=== PATIENT | female | born 1940 | race Caucasian/White ===

== ENCOUNTER → 2016-06-11 | Outpatient (CLI) | payer MEDICARE, BC ==
[~2016-06-11] MED LIST: CELEBREX PO; COUMADIN5 MG PO; CYANOCOBALAMIN PO; DELTASONE20 MG PO; FOLIC ACID1 MG PO; KID'S GUMMY BE1 EACH PO; LIPITOR40 MG PO; LOTREL 5-20 MG1 CAP PO; MULTI VITAMIN1 EACH PO; PHENERGAN25 MG PO; PYRIDOXINE PO; TUMS500 MG PO
--- NOTE | ~2016-06-11 | CT55 ---
[facility] A Service of [facility] RADIOLOGY TEXT RESULTS PATIENT: MARTI GARSIA [facility] UN[facility] #: [id number] AGE: [address]: Alejandro Crow MD SEX: F ORDER DR: [id number] [facility] [address] [place], [place] [address] [id number] O MR#: [id number] Acc #: [id number] NAME: MARTI GARSIA : 1940 SEX: F STUDY DATE/TIME: 06/11/2016 13:53 UNIT: [facility] ROOM: STUDY DESCRIPTION: CT Chest W Con Attending Physician: Alejandro Crow M.D. Referring Physician: Alejandro Crow M.D. Ordering Physician: Alejandro Crow M.D. Primary Care Physician: Layton Springer M.D. MEDICAL IMAGING REPORT This report is preliminary unless electronic signature is present EXAM CT Chest INDICATIONS Pulmonary embolism without acute core pulmonale. 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 Weakness. Pulmonary fibrosis. Chronic shortness of air. TECHNIQUE CT of the chest utilizing 7 mL Isovue-370 IV contrast. Coronal and sagittal reconstructions were obtained. This CT exam was performed with one or more of the following radiation dose reduction techniques: automatic exposure control, adjustment of mA and/or kV according to patient size, and iterative reconstruction. COMPARISON CT thorax dated 03/09/2016 FINDINGS Right mediastinal and right hilar lymphadenopathy continues to decrease in size. The size measurements are slightly different than the prior report based on measuring technique, however, a right suprahilar lymph node measures 2 x 1.8 cm compared to 2.4 x 1.8 cm previously. A second right hilar lymph node measures 2 x 1.4 cm compared to 1.9 x 1.4 cm previously. No new or enlarging pulmonary nodules. No new pulmonary opacities. Patient has diffuse chronic interstitial changes in both lungs including interstitial changes and bronchiectasis. No new opacities. Central airways are patent. The main pulmonary artery is dilated measuring 4 cm in diameter indicating [facility] A Service of [facility] RADIOLOGY TEXT RESULTS PATIENT: MARTI GARSIA LOCATION: [facility] : 40 UNIT #: [id number] AGE: [address]: Alejandro Crow MD SEX: F ORDER DR: a component of pulmonary arterial hypertension. No pericardial or pleural effusion. Limited images of the upper abdomen were obtained. The spleen is normal in size. Small Bochdalek hernia on the right. There is nonobstructing calculi in the left. No acute osseous abnormalities. IMPRESSION 1. Partial response to therapy. Right mediastinal/hilar lymph nodes continue to improve. 2. No evidence of disease progression. 3. Chronic interstitial opacities in both lungs have not significantly changed. Dictated by... Bryan Fitch M.D. THIS IS AN ELECTRONICALLY VERIFIED REPORT Bryan Fitch M.D. at 06/14/2016 2:00 PM Elvira/joseph TD: 06/14/2016 13:27 JOB #: [id number] MEDICAL IMAGING REPORT COPY
[2016-06-11 13:45] LABS: POC - CREATININE 0.82 mg/dL (0.44-1.03); POC - GFR >60.0 mL/min (>60)
== END | disposition home or self-care (01) ==
LOC: CCAT 12:22
PROVIDERS: Radiology Radiation Oncology
DX: I26.99 Other pulmonary embolism without acute cor pulmonale (principal); C83.37 Diffuse large B-cell lymphoma, spleen; R53.1 Weakness; C85.29 Mediastinal (thymic) large B-cell lymphoma, extranodal and solid organ sites
CPT/HCPCS: 71260; 82565; Q9967

== ENCOUNTER → 2016-09-09 | Outpatient (CLI) | payer MEDICARE, BC ==
--- NOTE | ~2016-09-09 | CT55 ---
[facility] A Service of [facility] & [facility] RADIOLOGY TEXT RESULTS PATIENT: MARTI GARSIA [facility] UNIT #: [id number] AGE: [address]: Myles Page MD SEX: F ORDER DR: [id number] [facility] [address] [place], [place] [address] [id number] O MR#: [id number] Acc #: [id number] NAME: MARTI GARSIA : 1940 SEX: F STUDY DATE/TIME: 09/09/2016 10:23 UNIT: [facility] ROOM: STUDY DESCRIPTION: CT Chest W Con Attending Physician: Myles Page M.D. Referring Physician: Myles Page M.D. Ordering Physician: Myles Page M.D. Primary Care Physician: Layton Springer M.D. MEDICAL IMAGING REPORT This report is preliminary unless electronic signature is present EXAM CT chest with contrast. DATE 09/09/16 HISTORY Diffuse large B-cell lymphoma, spleen. Weakness. Mediastinal (thymic) large B-cell lymphoma, external and subtle solid organ sites. Patient states lymphoma followup, history of pulmonary fibrosis since 2009. Patient states no current complaints. On home oxygen. History of pulmonary emboli. Last chemotherapy treatment January 2016, last radiation therapy treatment April 2016, per patient. Observation for metastatic disease. Restaging. COMPARISON CT chest with contrast 06/11/16, 03/09/16, 12/02/15. PROCEDURE 5 mm axial images through the chest after intravenous contrast administration. Sagittal and coronal reformed images were obtained. This CT exam was performed with one or more of the following radiation dose reduction techniques: Automatic exposure control, adjustment of mA and/or kV according to patient size, and iterative reconstruction. FINDINGS There is a linear or weblike filling defect within the proximal right lower lobe pulmonary artery (series 4 image 28) which is unchanged from 03/09/16, having an appearance of a chronic pulmonary embolism. It extends into right lower lobe segmental branch, again unchanged. No acute appearing pulmonary embolism is identified. Central pulmonary arteries are enlarged consistent with the appearance of pulmonary arterial [facility] A Service of [facility] & [facility] RADIOLOGY TEXT RESULTS PATIENT: MARTI GARSIA LOCATION: [facility] : 40 UNIT #: [id number] AGE: [address]: Myles Page MD SEX: F ORDER DR: hypertension. 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 No aortic dissection. Mild cardiomegaly persists, there is no pericardial effusion or pleural effusion. Ill-defined soft tissue thickening or adenopathy is again demonstrated within the right hilum and the mediastinum predominantly to the right of midline. Exact measurements are somewhat difficult due to an infiltrative appearance. Index node anterior to the right main pulmonary artery measures approximately 1.4 x 1.3 cm compared to 2.0 x 1.8 cm previously. Another right hilar node measures approximately 9 mm short axis compared to 1.4 cm previously. Pretracheal soft tissue thickness up to 7 mm compared to 9 mm on previous study. No new adenopathy or new mass lesion is identified. No supraclavicular or axillary nodes are seen. There is new alveolar disease within the superior segment right lower lobe and within the posterior right upper lobe. Correlation for superimposed pneumonia upon advanced emphysema and interstitial pulmonary fibrosis should be made. Small right Bochdalek hernia redemonstrated. Cholecystectomy. Gastric band device in place. Spleen size within normal limits. Left renal parapelvic cysts noted. Degenerative endplate changes are present in the thoracic spine. No acute or suspicious osseous lesions are identified. Degenerative changes of both shoulders. IMPRESSION 1. Continued positive response to therapy. Right hilar and mediastinal soft tissue thickening or adenopathy has diminished in size since the 06/11/2016 examination, and no new adenopathy is seen. There is no evidence of disease progression. 2. There is, however, new airspace disease in the posterior right upper lobe and superior segment right lower lobe. Correlate clinically for pneumonia. 3. Chronic-appearing pulmonary embolism in the right lower lobe, similar to the more remote CT chest from 03/09/16. No evidence of acute or new pulmonary embolism. 4. Advanced interstitial pulmonary fibrosis and emphysema. 5. Enlargement of the central pulmonary arteries. Correlate clinically for pulmonary arterial hypertension. Stable cardiomegaly. 6. Borderline aneurysmal dilation of the aortic root, mild fusiform aneurysmal dilation in the mid ascending thoracic aorta, unchanged. No aortic dissection. Dictated by... Shelby Omer M.D. [facility] A Service of [facility] RADIOLOGY TEXT RESULTS PATIENT: MARTI GARSIA LOCATION: [facility] : 40 UNIT #: [id number] AGE: [address]: Myles Page MD SEX: F ORDER DR: THIS IS AN ELECTRONICALLY VERIFIED REPORT Shelby Omer M.D. at 09/10/2016 8:27 AM PATRIA/hua TD: 09/09/2016 14:03 JOB #: [id number] MEDICAL IMAGING REPORT Page 1 of 1 COPY
[2016-09-09 10:16] LABS: POC - CREATININE 0.87 mg/dL (0.44-1.03); POC - GFR >60.0 mL/min (>60)
== END | disposition home or self-care (01) ==
LOC: CCAT 09:26
PROVIDERS: Internal Medicine Medical Oncology
DX: I26.99 Other pulmonary embolism without acute cor pulmonale (principal); C83.37 Diffuse large B-cell lymphoma, spleen; R53.1 Weakness; C85.29 Mediastinal (thymic) large B-cell lymphoma, extranodal and solid organ sites; J98.4 Other disorders of lung; J84.10 Pulmonary fibrosis, unspecified; J43.9 Emphysema, unspecified; I51.7 Cardiomegaly
CPT/HCPCS: 71260; 82565; Q9967

== ENCOUNTER → 2016-12-08 | Outpatient (CLI) | payer MEDICARE, BC ==
[2016-12-07 14:51] LABS: POC - CREATININE 1.15 mg/dL (0.44-1.03)
--- NOTE | ~2016-12-08 | CT55 ---
[facility] A Service of [facility] & [facility] RADIOLOGY TEXT RESULTS PATIENT: MARTI GARSIA LOCATION: [facility] : 40 UNIT #: [id number] AGE: [address]: Myles Page MD SEX: F ORDER DR: [id number] [facility] [address] [place], [place] [address] [id number] O MR#: [id number] Acc #: [id number] NAME: MARTI GARSIA : 1940 SEX: F STUDY DATE/TIME: 12/08/2016 10:07 UNIT: [facility] ROOM: STUDY DESCRIPTION: CT Chest W Con Attending Physician: Myles Page M.D. Referring Physician: Myles Page M.D. Ordering Physician: Myles Page M.D. Primary Care Physician: Layton Springer M.D. MEDICAL IMAGING REPORT This report is preliminary unless electronic signature is present EXAM Chest CT with contrast 12/08/2016 INDICATIONS 76-year-old female with history of lymphoma, weakness. Follow up from scan 3 months ago. Lymphoma diagnosed in January 2016, chemotherapy from March through April of 2015- respectively. Status post radiation therapy. Pulmonary fibrosis. Aortic aneurysm. Observation for suspected malignant neoplasm and active malignancy. TECHNIQUE Contrast-enhanced CT scan of the chest was performed. COMPARISON 09/09/2016. The CT exam was performed with one or more of the following radiation dose reduction techniques: automatic exposure control, adjustment of mA and/or kV according to patient size, and iterative reconstruction. FINDINGS CT chest: There is underlying emphysema and interstitial fibrosis. This has slightly more prominent on the right than left. Redemonstration of probable confluent fibrosis/scarring in the superior segment of the right lower lobe and posterior upper lobe on the right. No new effusion. Chronic bronchiectatic change in the central airways of the upper lobe and to a lesser extent lower lobe on the right and middle lobe. No distinct new pulmonary nodule. There is subpleural honeycomb formation in both lungs. [facility] Service of [facility] & [facility] RADIOLOGY TEXT RESULTS PATIENT: MARTI GARSIA LOCATION: [facility] : 40 UNIT #: [id number] AGE: [address]: Myles Page MD SEX: F ORDER DR: Included thyroid unremarkable. No pericardial effusion or axillary adenopathy. There is aneurysmal dilatation of the ascending aorta measuring up to 4.1 cm essentially unchanged. No aortic dissection. Main pulmonary artery is dilated most characteristic of underlying pulmonary arterial hypertension, also unchanged. Redemonstration of a linear filling defect within the lower lobe pulmonary artery on the right. It extends into the posterior division lower lobe pulmonary on the right also unchanged. Findings likely reflect sequela of chronic pulmonary embolus. No pericardial effusion. Redemonstration of soft tissue thickening/adenopathy in the mediastinum to the right of midline and right hilum. Findings are similar to the prior study. Index node anterior to the right pulmonary artery measures about 1.6 x 1.4 cm previously 1.4 x 1.3 cm but not significantly changed visually. Reference right hilar rebeka tissue or soft tissue thickening on the right, measuring 9 mm previously also unchanged. No distinct new adenopathy identified. Prominent hilar soft tissue on the left also stable, measuring up to 9 mm short axis. No new supraclavicular or axillary adenopathy. Included upper abdomen demonstrates postop changes of cholecystectomy and lap-band placement. Incidental diverticulosis. Osseous structures demonstrate spinal degenerative change. Incidental Bochdalek hernia on the right contains fat only. IMPRESSION 1. Hilar and mediastinal soft tissue thickening/adenopathy not significantly changed from the prior study for technical factors. No new adenopathy identified. 2. Imaging features most characteristic of underlying emphysema with fibrosis scarring and more confluent fibrosis in the right lung similar to the prior study of 09/09/2016. Chronicity of the findings on the right suggest progression of fibrosis rather than superimposed inflammatory or infectious response. 3. Redemonstration of chronic PE involving the lower lobe pulmonary artery on the right. 4. Imaging findings most characteristic of pulmonary arterial hypertension. 5. Aortic aneurysm unchanged. Dictated by... Jersey Washington M.D. THIS IS AN ELECTRONICALLY VERIFIED REPORT Jersey Washington M.D. at 12/09/2016 5:23 PM [facility] A Service of [facility] RADIOLOGY TEXT RESULTS PATIENT: MARTI GARSIA LOCATION: [facility] : 40 UNIT #: [id number] AGE: [address]: Myles Page MD SEX: F ORDER DR: TD: 12/09/2016 08:20 JOB #: [id number] MEDICAL IMAGING REPORT Page 1 of 1 COPY
== END | disposition home or self-care (01) ==
LOC: CCAT 12-07 08:42
PROVIDERS: Internal Medicine Medical Oncology
DX: C83.37 Diffuse large B-cell lymphoma, spleen (principal); C85.29 Mediastinal (thymic) large B-cell lymphoma, extranodal and solid organ sites; J84.10 Pulmonary fibrosis, unspecified; I27.82 Chronic pulmonary embolism; I71.2 Thoracic aortic aneurysm, without rupture
CPT/HCPCS: 71260; 82565; 96365; 96366; J1642; Q9967